=== PATIENT | female | born 1960 | race Caucasian/White ===

== ENCOUNTER 2016-06-27 11:18 | Inpatient (IN) | payer OTHER ==
[~2016-06-27] VITALS: Ht 182.9 cm; Wt 119.5 kg
[2016-06-27] VITALS (7 sets, daily range): BP systolic 128–145; BP diastolic 58–90; PULSE 85–94; RESP 16–20; TEMP 96–98.2; O2SAT 96–98
[~2016-06-27 11:18] MED LIST: CITA40 PO; ENOX150P SQ; NOVOLOGP2 SQ; OXYB5TAB PO
[2016-06-27] MEDS ORDERED: KETOROLAC TROMETHAMINE 60 MG/2 ML (IM) VIAL IM ONE (11:45)
[2016-06-27] MEDS ORDERED: OXYB5TAB10 PO (11:49)
[2016-06-27] MEDS ORDERED: ALBU6.7H INH (11:49)
[2016-06-27] MEDS ORDERED: MONT10TA2 PO (11:49)
[2016-06-27] MEDS ORDERED: POTA10TA2 PO (11:49)
[2016-06-27] MEDS ORDERED: CELE20TA PO (11:49)
[2016-06-27] MEDS ORDERED: FURO1TAB60 PO (11:49)
[2016-06-27] MEDS ORDERED: LISI2.5T3 PO (11:49)
[2016-06-27] MEDS ORDERED: IPRA17I INH (11:49)
[2016-06-27] MEDS ORDERED: SODIUM CHLOR 0.9% 1000 ML INJ 1,000 ML IV SCH ×2 (12:57→13:57)
[2016-06-27] MEDS ORDERED: SODIUM CHLORIDE 0.9% FLUSH 10 ML FLUSH IV FLUSH PRN (13:00)
--- NOTE | 2016-06-27 13:04 | PD ---
HPI Chief Complaint: Injury Time Seen by Provider: 12:00 Travel History International Travel<30 days: No Contact w/Intl Traveler<30days: No Traveled to known affect area: No History of Present Illness HPI 56-year-old female presents the emergency department status post fall while entering her workplace after tripping on a curb. She sustained injury to the right wrist. Patient was transferred here by EMS with splint applied to the right wrist and forearm and sling. Patient denies hitting her head or loss of consciousness. She denies any other injury. She patient does have a history of hypertension and chronic lower extremity edema for which she takes Lasix and lisinopril. She also has a history of asthma for which he takes Ventolin, and Flovent. Patient also takes Singulair 10 mg by mouth. Patient states allergies to hydrocodone, erythromycin, doxycycline, albuterol, and adhesives. PFSH Past Medical History Asthma: Yes Cancer: No Cardiovascular Problems: Yes Diabetes: Yes Patient Takes Glucophage: No Diminished Hearing: No Endocrine: Yes Gastrointestinal Disorders: Yes (GERD) Genitourinary: No Hepatitis: No Hiatal Hernia: No Hypertension: No Immune Disorder: No Medical other: Yes (COMA FOR 18 DAYS IN 05/2011) Musculoskeletal: Yes (DDD, BACK/ NECK PAIN) Neurologic: No Psychiatric: No Reproductive: No Respiratory: Yes Thyroid Disease: No Tetanus Vaccination: > 5 Years ?: Not Menopausal: Yes Past Surgical History AICD: No Body Medical Devices: INSULIN PUMP Cholecystectomy: Yes Insulin Pump: Yes (HUMALOG INSULIN VARYING RATE) Joint Replacement: No Pacemaker: No Other Surgery: Yes Social History Alcohol Use: No Tobacco Use: No Substance Use: No Allergies-Medications (Allergen,Severity, Reaction): Coded Allergies: Albuterol (Verified Allergy, Severe, APHASIA, SEVERE SHAKING, 06/27/16) Erythromycin (Verified Allergy, Intermediate, VOMITING, 06/27/16) Hydrocodone (Verified Allergy, Intermediate, Nausea/Vomiting, 06/27/16) Doxycycline (Verified Allergy, Mild, RASH, 06/27/16) Adhesives (Verified Adverse Reaction, Severe, ITCH, 06/27/16) Reported Meds & Prescriptions Reported Meds & Active Scripts Active Reported Proventil Hfa 6.7 GM Inh (Albuterol Sulfate) 90 Mcg/Act Aer 2 Puff INH BID PRN Atrovent HFA 12.9 GM Inh (Ipratropium [place]) 17 Mcg/Act Aer 2 Puff INH TID PRN Singulair (Montelukast Sodium) 10 Mg Tab 10 Mg PO HS Celexa (Citalopram Hydrobromide) 20 Mg Tab 20 Mg PO DAILY Ditropan (Oxybutynin Chloride) 5 Mg Tab 10 Mg PO DAILY Potassium Chloride ER (Potassium Chloride) 10 Meq Tab 10 Meq PO DAILY Lasix (Furosemide) 40 Mg Tab 40 Mg PO DAILY Lisinopril 2.5 Mg Tab 2.5 Mg PO DAILY Review of Systems Except as stated in HPI: all other systems reviewed are Neg General / Constitutional: No: Fever Eyes: No: Visual changes HENT: No: Headaches Cardiovascular: No: Chest Pain or Discomfort Respiratory: No: Shortness of Breath Gastrointestinal: No: Abdominal Pain Genitourinary: No: Dysuria Musculoskeletal: Positive: Arthralgias, Limited ROM, Pain Skin: No Rash Neurologic: No: Weakness Psychiatric: No: Depression Endocrine: No: Polydipsia Hematologic/Lymphatic: No: Easy Bruising Physical Exam Narrative GENERAL: Patient appears in mild distress. SKIN: Warm and dry. Normal color. Normal turgor. HEAD: Atraumatic. Normocephalic. EYES: Pupils equal and round. No scleral icterus. No injection or drainage. ENT: No nasal bleeding or discharge. Mucous membranes pink and moist. Pharynx is clear. Airway is patent. NECK: Trachea midline. No JVD. No bony tenderness or step-off. Range of motion is full without tenderness. CARDIOVASCULAR: Regular rate and rhythm. RESPIRATORY: No accessory muscle use. Clear to auscultation. Breath sounds equal bilaterally. GASTROINTESTINAL: Abdomen soft, non-tender, nondistended. Hepatic and splenic margins not palpable. MUSCULOSKELETAL: Extremities without clubbing, cyanosis, or edema. Patient has obvious deformities to the right wrist consistent with probable fracture. Patient has normal neurovascular exam distal to the wrist on the right. Right elbow and shoulder are normal. Patient does have ecchymosis to the right elbow which she states was from last weekend, while helping a friend move. NEUROLOGICAL: Awake and alert. No obvious cranial nerve deficits. Motor grossly within normal limits. Five out of 5 muscle strength in the arms and legs. [employer] strength is limited in the right hand secondary to pain. Normal speech. PSYCHIATRIC: Appropriate mood and affect; insight and judgment normal. Data Data Last Documented VS Vital Signs Date Time Temp Pulse Resp B/P Pulse Ox O2 Delivery O2 Flow Rate FiO2 06/27/16 13:16 16 98 Room Air 06/27/16 11:37 98.2 94 145/90 Orders Wrist, Complete ([id number]) (06/27/16 11:37) Ice/Cold Pack (06/27/16 11:37) Ketorolac Inj (Toradol Inj) (06/27/16 11:45) Diet Npo (06/27/16 Lunch) Complete Blood Count With Diff (06/27/16 12:57) Comprehensive Metabolic Panel (06/27/16 12:57) Prothrombin Time / Inr (Pt) (06/27/16 12:57) Act Partial Throm Time (Ptt) (06/27/16 12:57) Iv Access Insert/Monitor (06/27/16 12:57) Ecg Monitoring (06/27/16 12:57) Oximetry (06/27/16 12:57) Sodium Chlor 0.9% 1000 Ml Inj (Ns 1000 M (06/27/16 12:57) Sodium Chloride 0.9% Flush (Ns Flush) (06/27/16 13:00) Electrocardiogram (06/27/16 12:57) Support Splint (06/27/16 12:58) Splint Or Brace Apply/Monitor (06/27/16 12:58) Labs Laboratory Tests Test 06/27/16 13:10 White Blood Count 7.9 TH/MM3 Red Blood Count 4.56 MIL/MM3 Hemoglobin 13.4 GM/DL Hematocrit 40.1 % Mean Corpuscular Volume 88.0 FL Mean Corpuscular Hemoglobin 29.3 PG Mean Corpuscular Hemoglobin 33.3 % Concent Red Cell Distribution Width 12.9 % Platelet Count 235 TH/MM3 Mean Platelet Volume 8.3 FL Neutrophils (%) (Auto) 67.0 % Lymphocytes (%) (Auto) 22.1 % Monocytes (%) (Auto) 3.8 % Eosinophils (%) (Auto) 3.1 % Basophils (%) (Auto) 4.0 % Neutrophils # (Auto) 5.4 TH/MM3 Lymphocytes # (Auto) 1.7 TH/MM3 Monocytes # (Auto) 0.3 TH/MM3 Eosinophils # (Auto) 0.2 TH/MM3 Basophils # (Auto) 0.3 TH/MM3 CBC Comment DIFF FINAL Differential Comment MDM Medical Decision Making Medical Screen Exam Complete: Yes Emergency Medical Condition: Yes Medical Record Reviewed: Yes Differential Diagnosis Workplace injury. Fall. FOOSH injury. Wrist fracture. Narrative Course Patient is medically stable at time of exam. Patient is given 30 mg Toradol IM. X-rays of the right wrist are obtained showing comminuted fracture involving the joint line of the right distal radius. Call was placed to Dr. Vasquez and the patient was discussed. He recommends transferring the patient to the [facility], with admission with planned OR ORIF. Patient is made nothing by mouth. IV access is obtained patient has basic labs obtained including CBC, CMP, PT PTT and INR, as well as EKG and chest x-ray. The right arm and wrist is placed in a sugar tong splint and sling. She is discussed with Dr. Carrasco ankle will admit the patient. Patient is awaiting transfer to the [facility] in [facility]. Diagnosis Primary Impression: Closed right radial fracture Qualified Code: S52.531A - Closed Colles' fracture of right radius, initial encounter Admitting Information Admitting Physician Requests: Admit Condition: Stable Pee Franklin Jun 27, 2016 13:04
--- NOTE | 2016-06-27 13:16 | RADHPO ---
EXAM DATE/TIME: 06/27/2016 11:49 [facility] COMPARISON: No previous studies available for comparison. INDICATIONS : Right wrist pain MEDICAL HISTORY : None. SURGICAL HISTORY : None. ENCOUNTER: Initial ACUITY: 1 day PAIN SCORE: 9/10 LOCATION: Right chest FINDINGS: AP, lateral and oblique views of the wrist were obtained and demonstrate a mildly comminuted fracture deformity of the distal radius with multiple fracture lines. Several oblique fracture lines extend i nto the radiocarpal joint. There is mild distraction of the dorsal fragment. There is a small fractur e of the ulnar styloid. The carpus appears intact. There is overlying soft tissue swelling. CONCLUSION: 1. Fracture deformity of the distal radius. 2. Small avulsion-type fracture off of the ulnar styloid. David Redd MD on June 27, 2016 at 13:13 Board Certified Radiologist. This report was verified electronically.
[2016-06-27 13:22] LABS: AUTOMATED NEUTROPHIL # 5.4 TH/MM3 (1.8-7.7); BASOPHIL # 0.3 TH/MM3 (0-0.2); EOSINOPHIL # 0.2 TH/MM3 (0-0.4); EOSINOPHIL % 3.1 % (0.0-4.0); HEMATOCRIT 40.1 % (35.0-46.0); HEMO FLAGS DIFF FINAL; LYMPH % 22.1 % (9.0-44.0); LYMPHOCYTE # 1.7 TH/MM3 (1.0-4.8); MEAN CORPUSCULAR HEMOGLOBIN 29.3 PG (27.0-34.0); MEAN CORPUSCULAR HGB CONC 33.3 % (32.0-36.0); MONO % 3.8 % (0.0-8.0); PLATELET COUNT 235 TH/MM3 (150-450); RED BLOOD COUNT 4.56 MIL/MM3 (4.00-5.30); RED CELL DISTRIBUTION WIDTH 12.9 % (11.6-17.2); WHITE BLOOD COUNT 7.9 TH/MM3 (4.0-11.0)
[2016-06-27 13:32] LABS: CHLORIDE 103 MEQ/L (98-107); POTASSIUM 4.3 MEQ/L (3.5-5.1); SODIUM (NA) 139 MEQ/L (136-145)
[2016-06-27 13:35] LABS: ANION GAP 7 MEQ/L (5-15); BICARBONATE 28.7 MEQ/L (21.0-32.0); BLOOD UREA NITROGEN 14 MG/DL (7-18)
[2016-06-27 13:36] LABS: APTT (PATIENT) 26.1 SEC (24.3-30.1); PROTHROMBIN TIME - PATIENT 11.1 SEC (9.8-11.6)
[2016-06-27 13:38] LABS: ALT (GPT) 17 U/L (10-53); AST (GOT) 12 U/L (15-37)
[2016-06-27 13:39] LABS: GLOMERULAR FILTRATION RATE 70 ML/MIN (>89)
[2016-06-27 13:40] LABS: TOTAL BILIRUBIN ADULT 0.4 MG/DL (0.2-1.0)
[2016-06-27 13:41] LABS: ALKALINE PHOSPHATASE 84 U/L (45-117)
[2016-06-27] MEDS ORDERED: DEXTROSE 50% IN WATER 50 ML VIAL(D50) IV PUSH PRN (14:00)
[2016-06-27] MEDS ORDERED: ACETAMINOPHEN 325 MG TAB PO PRN ×2 (14:00)
[2016-06-27] MEDS ORDERED: GLUCAGON 1 MG/ML VIAL OTHER PRN (14:00)
[2016-06-27] MEDS ORDERED: MORPHINE SULFATE 4 MG/ML INJ IV PRN (14:00)
[2016-06-27] MEDS ORDERED: NALOXONE HCL 0.4 MG/ML AMP IV PRN (14:00)
[2016-06-27] MEDS ORDERED: IPRATROPIUM BROMIDE 17 MCG/ACT 12.9 GM INHALER INH PRN (14:15)
--- NOTE | 2016-06-27 14:18 | HHI.HP ---
[facility] Service [facility] Hospitalists Primary Care Physician Kevin Cartwright MD Admission Diagnosis Right wrist Fracture Diagnoses: (1) Closed right radial fracture (2) Diabetes mellitus (3) GERD (gastroesophageal reflux disease) Chief Complaint: fall, wrist pain Travel History International Travel<30 Days: No Contact w/Intl Traveler <30 Da: No Traveled to Known Affected Are: No History of Present Illness The patient is a 56-year-old female who was apparently walking into work at [employer] when she slipped on wet pavement. She fell forward, landing on her outstretched right arm. She developed pain in the right wrist immediately. No other complaints. No lightheadedness or dizziness. She did not hit her head and there was no loss of consciousness. No pain other than the right wrist. Review of Systems Constitutional: DENIES: Fever, Chills, Night Sweats Eyes: DENIES: Blurred vision, Vision loss Ears, nose, mouth, throat: DENIES: Hearing loss Respiratory: DENIES: Cough, Wheezing, Sputum production, Shortness of breath Cardiovascular: DENIES: Chest pain, Palpitations, Dyspnea on Exertion, Lower Extremity Edema Gastrointestinal: DENIES: Abdominal pain, Constipation, Diarrhea, Nausea, Vomiting Genitourinary: DENIES: Urinary frequency, Urinary incontinence, Urgency, Hematuria, Dysuria, Nocturia Musculoskeletal: COMPLAINS OF: Joint pain, DENIES: Muscle aches Integumentary: DENIES: Pruritus, Rash Hematologic/lymphatic: DENIES: Bruising Neurologic: DENIES: Headache Past Family Social History Past Medical History Insulin-dependent diabetes mellitus GERD Degenerative disc disease Chronic neck & back pain Past Surgical History Insulin pump Cholecystectomy Cervical spine surgery Reported Medications Proventil Hfa 6.7 GM Inh (Albuterol Sulfate) 90 Mcg/Act Aer 2 Puff INH BID PRN Atrovent HFA 12.9 GM Inh (Ipratropium [place]) 17 Mcg/Act Aer 2 Puff INH TID PRN Singulair (Montelukast Sodium) 10 Mg Tab 10 Mg PO HS Celexa (Citalopram Hydrobromide) 20 Mg Tab 20 Mg PO DAILY Ditropan (Oxybutynin Chloride) 5 Mg Tab 10 Mg PO DAILY Potassium Chloride ER (Potassium Chloride) 10 Meq Tab 10 Meq PO DAILY Lasix (Furosemide) 40 Mg Tab 40 Mg PO DAILY Lisinopril 2.5 Mg Tab 2.5 Mg PO DAILY Allergies: Coded Allergies: Albuterol (Verified Allergy, Severe, APHASIA, SEVERE SHAKING, 06/27/16) Erythromycin (Verified Allergy, Intermediate, VOMITING, 06/27/16) Hydrocodone (Verified Allergy, Intermediate, Nausea/Vomiting, 06/27/16) Doxycycline (Verified Allergy, Mild, RASH, 06/27/16) Adhesives (Verified Adverse Reaction, Severe, ITCH, 06/27/16) Family History Denies Social History Quit smoking many years ago. Denies alcohol or illicit drug use. Physical Exam Vital Signs Vital Signs Date Time Temp Pulse Resp B/P Pulse Ox O2 Delivery O2 Flow Rate FiO2 06/27/16 13:16 16 98 Room Air 06/27/16 11:37 98.2 94 18 145/90 96 Physical Exam GENERAL: Obese female in no acute distress. HEENT: Normocephalic, atraumatic. Pupils equal, round and reactive. Extraocular movements intact. No scleral icterus. No injection or drainage. Oropharynx is clear. Mucous membranes are moist. CARDIOVASCULAR: Regular rate and rhythm without murmurs, gallops, or rubs. RESPIRATORY: Clear to auscultation. No wheezes, rales, or rhonchi. Breathing is non-labored. GASTROINTESTINAL: Abdomen soft, non-tender, nondistended. EXTREMITIES: Trace bilateral lower extremity edema. No calf tenderness. Right arm in a splint. PSYCH: Alert and oriented x 3. Laboratory Laboratory Tests Test 06/27/16 13:10 White Blood Count 7.9 Red Blood Count 4.56 Hemoglobin 13.4 Hematocrit 40.1 Mean Corpuscular Volume 88.0 Mean Corpuscular Hemoglobin 29.3 Mean Corpuscular Hemoglobin 33.3 Concent Red Cell Distribution Width 12.9 Platelet Count 235 Mean Platelet Volume 8.3 Neutrophils (%) (Auto) 67.0 Lymphocytes (%) (Auto) 22.1 Monocytes (%) (Auto) 3.8 Eosinophils (%) (Auto) 3.1 Basophils (%) (Auto) 4.0 Neutrophils # (Auto) 5.4 Lymphocytes # (Auto) 1.7 Monocytes # (Auto) 0.3 Eosinophils # (Auto) 0.2 Basophils # (Auto) 0.3 CBC Comment DIFF FINAL Differential Comment Prothrombin Time 11.1 Prothromb Time International 1.0 Ratio Activated Partial 26.1 Thromboplast Time Sodium Level 139 Potassium Level 4.3 Chloride Level 103 Carbon Dioxide Level 28.7 Anion Gap 7 Blood Urea Nitrogen 14 Creatinine 0.84 Estimat Glomerular Filtration 70 Rate Random Glucose 250 Calcium Level 9.0 Total Bilirubin 0.4 Aspartate Amino Transf 12 (AST/SGOT) Alanine Aminotransferase 17 (ALT/SGPT) Alkaline Phosphatase 84 Total Protein 7.3 Albumin 3.7 Result Diagram: 06/27/16 1310 06/27/16 1310 Imaging Last Impressions Wrist X-Ray 06/27/16 1137 Signed Impressions: Service Date/Time: Monday, June 27, 2016 11:49 - CONCLUSION: 1. Fracture deformity of the distal radius. 2. Small avulsion-type fracture off of the ulnar styloid. David Redd MD Assessment and Plan Assessment and Plan 1. Right wrist fracture: Splint applied in ER. Orthopedic surgery planning surgical repair. Continue pain control, bowel regimen. 2. Insulin dependent diabetes mellitus: Patient has insulin pump with Novolog basal and bolus. Usually uses 35-40 units/day total. Currently NPO. Monitor Accu -Chek and cover with sliding scale insulin. 3. DVT prophylaxis: MARY Lowe. Problem Qualifiers (1) Closed right radial fracture: Qualified Code: S52.531A - Closed Colles' fracture of right radius, initial encounter Jeovanny Cruz MD Jun 27, 2016 14:18
[2016-06-27] MEDS ORDERED: NOVOLOGP2 SQ (16:06)
[2016-06-27] MEDS: INSULIN ASPART SUPPLEMENTAL SCALE SQ SCH ×2 (16:10→20:35)
[2016-06-27] MEDS ORDERED: RESP: IPRATROPIUM 0.5 MG/2.5 ML NEB NEB PRN (16:30)
[2016-06-27] MEDS: MORPHINE SULFATE 4 MG/ML INJ IV PRN (18:18)
[2016-06-27] MEDS: ONDANSETRON HCL 4 MG/2 ML VIAL IVP PRN (18:22)
[2016-06-27] MEDS ORDERED: MONTELUKAST SODIUM 10 MG TAB PO SCH (21:00)
[2016-06-27] MEDS ORDERED: DEXT 5%-NACL 0.9% 1000 ML INJ 1,000 ML IV SCH (21:30)
[2016-06-27] MEDS: DOCUSATE SODIUM 100 MG CAP PO SCH (21:32)
--- NOTE | 2016-06-27 23:26 | PD.CONS ---
cc: Jeronimo Vasquez MD HPI Service [facility]opedic Surgeons Consult Requested By ED staff Reason for Consult right distal radius fracture Primary Care Physician Kevin Cartwright MD Admission Diagnosis Right wrist Fracture Diagnoses: (1) Closed right radial fracture (2) Diabetes mellitus (3) GERD (gastroesophageal reflux disease) Chief Complaint: Right wrist pain History of Present Illness The patient is a 56-year-old female who was apparently walking into work at [employer] when she slipped on wet pavement. She fell forward, landing on her outstretched right arm. She developed pain in the right wrist immediately. No other complaints. No lightheadedness or dizziness. She did not hit her head and there was no loss of consciousness. No pain other than the right wrist. The patient initially presented to [facility]. X-rays revealed a displaced fracture of the distal radius. It was comminuted and intra- articular. It was felt to be a surgical fracture and she was transferred to the main campus for definitive care. She denies other extremity injury. Review of Systems Reviewed and well outlined in the medical record Past Family Social History Past Medical History Insulin-dependent diabetes mellitus GERD Degenerative disc disease Chronic neck & back pain Past Surgical History Insulin pump Cholecystectomy Cervical spine surgery Shoulder arthroscopy Tracheostomy Allergies: Coded Allergies: Albuterol (Verified Allergy, Severe, APHASIA, SEVERE SHAKING, 06/27/16) Erythromycin (Verified Allergy, Intermediate, VOMITING, 06/27/16) Hydrocodone (Verified Allergy, Intermediate, Nausea/Vomiting, 06/27/16) Doxycycline (Verified Allergy, Mild, RASH, 06/27/16) Adhesives (Verified Adverse Reaction, Severe, ITCH, 06/27/16) Active Ordered Medications Current Medications Medications (Trade) Dose Ordered Sig/Nilson Route Start Time Stop Time Status Last Admin (NS Flush) 2 ml UNSCH PRN IV FLUSH 06/27/16 13:00 (Tylenol) 650 mg Q4H PRN PO 06/27/16 14:00 (Zofran Inj) 4 mg Q6H PRN IVP 06/27/16 14:00 06/27/16 18:22 (Colace) 100 mg Q12H PO 06/27/16 21:00 06/27/16 21:32 (Tylenol) 650 mg Q6H PRN PO 06/27/16 14:00 (Morphine Inj) 1 mg Q3H PRN IV 06/27/16 14:00 06/27/16 18:18 (Morphine Inj) 2 mg Q3H PRN IV 06/27/16 14:00 (Narcan Inj) 0.4 mg UNSCH PRN IV 06/27/16 14:00 (D50w (Vial) Inj) 25 ml UNSCH PRN IV PUSH 06/27/16 14:00 (Glucagon Inj) 1 mg UNSCH PRN OTHER 06/27/16 14:00 (CeleXA) 20 mg DAILY PO 06/28/16 09:00 (Lasix) 40 mg DAILY PO 06/28/16 09:00 (Singulair) 10 mg HS PO 06/27/16 21:00 06/27/16 21:32 (Ditropan) 10 mg DAILY PO 06/28/16 09:00 (KCl) 10 meq DAILY PO 06/28/16 09:00 Lisinopril 2.5 mg 2.5 mg DAILY PO 06/28/16 09:00 (D5W-NS 1000 ml Inj) 1,000 ml @ 50 mls/hr Q20H IV 06/27/16 21:30 06/27/16 21:30 Reported Meds & Active Scripts Active Reported Novolog Inj (Insulin Aspart) 1,000 Unit/10 Ml Vial 0 SQ DIRECTED Sliding Scale as directed. Proventil Hfa 6.7 GM Inh (Albuterol Sulfate) 90 Mcg/Act Aer 2 Puff INH BID PRN Atrovent HFA 12.9 GM Inh (Ipratropium [place]) 17 Mcg/Act Aer 2 Puff INH TID PRN Singulair (Montelukast Sodium) 10 Mg Tab 10 Mg PO HS Celexa (Citalopram Hydrobromide) 20 Mg Tab 20 Mg PO DAILY Ditropan (Oxybutynin Chloride) 5 Mg Tab 10 Mg PO DAILY Potassium Chloride ER (Potassium Chloride) 10 Meq Tab 10 Meq PO DAILY Lasix (Furosemide) 40 Mg Tab 40 Mg PO DAILY Lisinopril 2.5 Mg Tab 2.5 Mg PO DAILY Family History Denies Social History Quit smoking many years ago. Denies alcohol or illicit drug use. Physical Exam Vital Signs Vital Signs Date Time Temp Pulse Resp B/P Pulse Ox O2 Delivery O2 Flow Rate FiO2 06/27/16 20:00 96.0 85 18 136/67 98 06/27/16 17:11 67 16 132/72 98 06/27/16 16:30 96.9 92 20 130/58 96 06/27/16 16:00 89 16 138/74 96 Room Air 06/27/16 14:17 16 06/27/16 14:00 90 16 128/66 97 Room Air 06/27/16 13:45 16 98 Room Air 06/27/16 13:16 16 98 Room Air 06/27/16 11:37 98.2 94 18 145/90 96 Physical Exam The right upper extremity is in a long arm splint. She moves her fingers freely. She has good capillary refill and sensation. There are no other localizing signs of extremity injury. Laboratory Laboratory Tests Test 06/27/16 13:10 White Blood Count 7.9 Red Blood Count 4.56 Hemoglobin 13.4 Hematocrit 40.1 Mean Corpuscular Volume 88.0 Mean Corpuscular Hemoglobin 29.3 Mean Corpuscular Hemoglobin 33.3 Concent Red Cell Distribution Width 12.9 Platelet Count 235 Mean Platelet Volume 8.3 Neutrophils (%) (Auto) 67.0 Lymphocytes (%) (Auto) 22.1 Monocytes (%) (Auto) 3.8 Eosinophils (%) (Auto) 3.1 Basophils (%) (Auto) 4.0 Neutrophils # (Auto) 5.4 Lymphocytes # (Auto) 1.7 Monocytes # (Auto) 0.3 Eosinophils # (Auto) 0.2 Basophils # (Auto) 0.3 CBC Comment DIFF FINAL Differential Comment Prothrombin Time 11.1 Prothromb Time International 1.0 Ratio Activated Partial 26.1 Thromboplast Time Sodium Level 139 Potassium Level 4.3 Chloride Level 103 Carbon Dioxide Level 28.7 Anion Gap 7 Blood Urea Nitrogen 14 Creatinine 0.84 Estimat Glomerular Filtration 70 Rate Random Glucose 250 Calcium Level 9.0 Total Bilirubin 0.4 Aspartate Amino Transf 12 (AST/SGOT) Alanine Aminotransferase 17 (ALT/SGPT) Alkaline Phosphatase 84 Total Protein 7.3 Albumin 3.7 Result Diagram: 06/27/16 1310 06/27/16 1310 Imaging Last 48 hours Impressions Wrist X-Ray 06/27/16 1137 Signed Impressions: Service Date/Time: Monday, June 27, 2016 11:49 - CONCLUSION: 1. Fracture deformity of the distal radius. 2. Small avulsion-type fracture off of the ulnar styloid. David Redd MD Assessment & Plan Problem List: (1) Colles' fracture of right radius, initial encounter for closed fracture (2) GERD (gastroesophageal reflux disease) (3) Diabetes mellitus Assessment and Plan These findings were discussed. Recommendations are given to consider surgical management. The nonoperative alternatives were discussed. The nature of the procedure, the risks, expected benefits, as well as the postoperative expectations were discussed with her in detail. In addition, the alternatives to treatment and risk of same were discussed. The possibility of one of my associates taking over care was discussed and she acknowledges full understanding and agrees to the plan. Jeronimo Vasquez MD Jun 27, 2016 23:26
[2016-06-28] VITALS: BP 134/79; PULSE 97; RESP 18; TEMP 99.4; O2SAT 96
[2016-06-28] MEDS: MORPHINE SULFATE 4 MG/ML INJ IV PRN (03:49)
[2016-06-28] MEDS: ONDANSETRON HCL 4 MG/2 ML VIAL IVP PRN (03:49)
[2016-06-28 04:00] VITALS: BP 117/67; PULSE 76; RESP 16; TEMP 97.4; O2SAT 97
[2016-06-28] MEDS: INSULIN ASPART SUPPLEMENTAL SCALE SQ SCH (06:40)
--- NOTE | 2016-06-28 07:01 | RADRPT ---
EXAM DATE/TIME: 06/28/2016 06:39 [facility] COMPARISON: WRIST RIGHT COMPLETE ([id number]), June 27, 2016, 11:49. INDICATIONS : Right wrist pain. MEDICAL HISTORY : None. SURGICAL HISTORY : None. ENCOUNTER: Subsequent ACUITY: 2 days PAIN SCORE: 6/10 LOCATION: Right wrist. FINDINGS: There is gross anatomical alignment of the distal radial fracture with slight buckling. Ulnar styloid fracture is also seen. Casting material obscures bony detail. CONCLUSION: Gross anatomical alignment post casting. Silva Guardado MD on June 28, 2016 at 6:58 Board Certified Radiologist. This report was verified electronically.
[2016-06-28] MEDS ORDERED: HYDR-3288 PO (07:10)
--- NOTE | 2016-06-28 07:14 | PD.ORT.PN ---
Subjective Subjective Remarks Jaqueline Works at [employer]. She was at work yesterday when she slipped and fell. The sidewalk was wet because of brain causing her to fall. She landed on her right wrist. Objective Vitals Vital Signs Date Time Temp Pulse Resp B/P Pulse Ox O2 Delivery O2 Flow Rate FiO2 06/28/16 04:06 14 06/28/16 04:00 97.4 76 16 117/67 97 06/28/16 00:00 99.4 97 18 134/79 96 06/27/16 20:00 96.0 85 18 136/67 98 06/27/16 17:11 67 16 132/72 98 06/27/16 16:30 96.9 92 20 130/58 96 06/27/16 16:00 89 16 138/74 96 Room Air 06/27/16 14:17 16 06/27/16 14:00 90 16 128/66 97 Room Air 06/27/16 13:45 16 98 Room Air 06/27/16 13:16 16 98 Room Air 06/27/16 11:37 98.2 94 18 145/90 96 Result Diagram: 06/27/16 1310 06/27/16 1310 Other Results Laboratory Tests Test 06/27/16 13:10 Prothrombin Time 11.1 SEC (9.8-11.6) Prothromb Time International 1.0 RATIO Ratio Imaging Last 24 hours Impressions Wrist X-Ray 06/27/16 1137 Signed Impressions: Service Date/Time: Monday, June 27, 2016 11:49 - CONCLUSION: 1. Fracture deformity of the distal radius. 2. Small avulsion-type fracture off of the ulnar styloid. David Redd MD Objective Remarks Jaqueline is awake and alert. Examination right arm reveals minimal pain with shoulder elbow motion. She is tender to palpation over distal radius. Sensation is intact in all fingers. She has mild swelling around the wrist. She is good cap refill of her fingers. Examination of left arm reveals no pain with shoulder, elbow, or wrist motion. Sensation is intact. Radial pulses palpable. Examination of bilateral lower knees reveals no pain with hip, knee, or ankle motion. Sensation is intact to both feet. Assessment & Plan Problem List: (1) Colles' fracture of right radius, initial encounter for closed fracture (2) GERD (gastroesophageal reflux disease) (3) Diabetes mellitus Assessment and Plan I ordered new x-rays of right wrist this morning. Previous x-rays were not ideal views of her wrist. X-rays today reveal that articular surface is very well aligned. There is minimal shortening or angular deformity. I discussed these x-ray findings with patient. I discussed both surgical and nonsurgical options. At this point she would prefer to proceed with nonsurgical options. I would anticipate that she have excellent long-term function of her wrists if the fracture heals in its current alignment. I will have her return to clinic in 1 week for repeat x-rays of right wrist. If the fracture remains well aligned I will plan on nonoperative treatment and place her in a cast. In fracture displaces, I will schedule her for surgery. She may be discharged home today.. Hector Hewitt MD Jun 28, 2016 07:14
[2016-06-28 08:31] VITALS: BP 125/66; PULSE 76; RESP 22; TEMP 98.2; O2SAT 96
[2016-06-28] MEDS ORDERED: FUROSEMIDE 40 MG TAB PO SCH (09:00)
[2016-06-28] MEDS ORDERED: OXYBUTYNIN CHLORIDE 5 MG TAB PO SCH (09:00)
[2016-06-28] MEDS ORDERED: CITALOPRAM HYDROBROMIDE 20 MG TAB PO SCH (09:00)
[2016-06-28] MEDS ORDERED: POTASSIUM CHLORIDE 10 MEQ CONTROLLED RELEASE TAB PO SCH (09:00)
[2016-06-28] MEDS ORDERED: LISINOPRIL 5 MG TAB PO SCH (09:00)
--- NOTE | 2016-06-28 09:10 | EKG ---
Date Performed: 06/27/2016 Time Performed: 13:16:16 PTAGE: 56 years EKG: Sinus rhythm Normal ECG PREVIOUS TRACING : 12/21/2011 16.23 No significant change from previous tracing noted. DOCTOR: Kris Zaragoza Interpretating Date/Time 06/28/2016 09:08:47
[2016-06-28] MEDS ORDERED: ULTR50TA5 PO (10:13)
--- NOTE | 2016-06-28 10:14 | HHI.DCPOC ---
Discharge Care Plan Diagnosis: (1) Closed right radial fracture (2) Diabetes mellitus Goals to Promote Your Health * To prevent worsening of your condition and complications * To maintain your health at the optimal level Directions to Meet Your Goals Take your medications as prescribed Follow your dietary instruction Follow activity as directed Keep your appointments as scheduled Take your immunizations and boosters as scheduled If your symptoms worsen call your PCP, if no PCP go to Urgent Care Center or Emergency Room Smoking is Dangerous to Your Health. Avoid second hand smoke Call the 24-hour hour crisis hotline for domestic abuse at Gabriel Antunez MD Jun 28, 2016 10:14
--- NOTE | 2016-06-28 10:15 | HHI.PR ---
Subjective Remarks Patient reports that she is feeling well. Pain on the right wrist is controlled. She has been seen and cleared by Orthopedics for discharge to follow up outpatient. Objective Vitals Vital Signs Date Time Temp Pulse Resp B/P Pulse Ox O2 Delivery O2 Flow Rate FiO2 06/28/16 08:31 98.2 76 22 125/66 96 06/28/16 04:06 14 06/28/16 04:00 97.4 76 16 117/67 97 06/28/16 00:00 99.4 97 18 134/79 96 06/27/16 20:00 96.0 85 18 136/67 98 06/27/16 17:11 67 16 132/72 98 06/27/16 16:30 96.9 92 20 130/58 96 06/27/16 16:00 89 16 138/74 96 Room Air 06/27/16 14:17 16 06/27/16 14:00 90 16 128/66 97 Room Air 06/27/16 13:45 16 98 Room Air 06/27/16 13:16 16 98 Room Air 06/27/16 11:37 98.2 94 18 145/90 96 Result Diagram: 06/27/16 1310 06/27/16 1310 Imaging Last Impressions Wrist X-Ray 06/28/16 0000 Signed Impressions: Service Date/Time: Tuesday, June 28, 2016 06:39 - CONCLUSION: Gross anatomical alignment post casting. Silva Guardado MD Objective Remarks GENERAL: This is a well-nourished, well-developed patient, in no apparent distress. CARDIOVASCULAR: Regular rate and rhythm without murmurs, gallops, or rubs. RESPIRATORY: Clear to auscultation. Breath sounds equal bilaterally. No wheezes , rales, or rhonchi. GASTROINTESTINAL: Abdomen soft, non-tender, nondistended. Normal active bowel sounds MUSCULOSKELETAL: Right upper extremity is splinted. Neurovascularly intact at the fingers. Extremities without clubbing, cyanosis, or edema. NEURO: Alert & Oriented x4 to person, place, time, situation. Moves all ext x4 A/P Problem List: (1) Closed right radial fracture ICD Code: S52.91XA Status: Acute (2) Diabetes mellitus ICD Code: E11.9 Status: Acute (3) GERD (gastroesophageal reflux disease) ICD Code: K21.9 Status: Acute Assessment and Plan 1. Right wrist fracture: Splint applied in ER. Orthopedic surgery followed the patient. DC home to follow up outpatient for repeat X-ray 2. Insulin dependent diabetes mellitus: Patient has insulin pump with Novolog basal and bolus. Usually uses 35-40 units/day total. Continue same regimen on discharge. Discharge Planning Discharge home in good condition Follow up with Orthopedics Meds per med rec activity: Regular as tolerated, per ortho instructions Diet: Diabetic Problem Qualifiers (1) Closed right radial fracture: Qualified Code: S52.531A - Closed Colles' fracture of right radius, initial encounter Gabriel Antunez MD Jun 28, 2016 10:15
[2016-06-28] MEDS: DOCUSATE SODIUM 100 MG CAP PO SCH (10:17)
== END 2016-06-28 11:37 | disposition home or self-care (01) | DRG 563 ==
LOC: PHEFT 11:18 → PHEDA 13:32 → NEPGCP 17:56
PROVIDERS: ADMIT Family Medicine; ATTEND Family Medicine
DX: S52.531A Colles' fracture of right radius, initial encounter for closed fracture (principal); E11.9 Type 2 diabetes mellitus without complications; K21.9 Gastro-esophageal reflux disease without esophagitis; M54.9 Dorsalgia, unspecified; Z79.4 Long term (current) use of insulin; W01.0XXA Fall on same level from slipping, tripping and stumbling without subsequent striking against object, initial encounter; Y93.01 Activity, walking, marching and hiking; Y92.238 Other place in hospital as the place of occurrence of the external cause
CPT/HCPCS: 73100; 73110; 80053; 82948; 85025; 85610; 85730; 93005; 96372; J1885; J2270; J2405; J7030; J7042

== ENCOUNTER → 2017-01-20 | Outpatient (CLI) | payer OTHER ==
[~2017-01-20] MED LIST changes: +ALBU6.7H INH; +CELE20TA PO; -CITA40 PO; +CYCL10TA PO; -ENOX150P SQ; +FURO1TAB60 PO; +HYDR-3288 PO; +IPRA17I INH; +LISI2.5T3 PO; +MONT10TA2 PO; -OXYB5TAB PO; +OXYB5TAB8 PO; +POTA10TA2 PO; +TRAM50 PO
--- NOTE | 2017-01-20 08:45 | RADRPT ---
EXAM DATE/TIME: 01/20/2017 08:21 [facility] COMPARISON: CHEST PA & LAT, January 13, 2014, 8:19. INDICATIONS : Evaluate for pneumonia, pneumothorax, or communicable disease. Pre op for hand/wrist surgery. MEDICAL HISTORY : Gastroesophageal reflux disease. Asthma.Peripheral vascular disease. Degenerative disk disease. SURGICAL HISTORY : Cholecystectomy. Discectomy, cervical. Shoulder. Tibia. ENCOUNTER: Initial ACUITY: 1 day PAIN SCORE: 0/10 LOCATION: chest FINDINGS: PA and lateral views of the chest demonstrate the lungs to be symmetrically aerated without evidence of mass, infiltrate or effusion. The cardiomediastinal contours are unremarkable. Osseous structure s are intact. CONCLUSION: No acute disease. Dayron Zuniga MD on January 20, 2017 at 8:43 Board Certified Radiologist. This report was verified electronically.
--- NOTE | 2017-01-20 18:40 | EKG ---
Date Performed: 01/20/2017 Time Performed: 07:51:08 PTAGE: 56 years EKG: Sinus rhythm . Septal T wave changes are nonspecific Borderline ECG Compared to PREVIOUS TRACING , T wave changes improved inferiorly, nonspecific T wave changes in V2 i s new. PREVIOUS TRACIN06/27/2016 13.16 DOCTOR: Jeronimo Valero Interpretating Date/Time 01/20/2017 18:39:16
== END ==
LOC: HCAV 07:43
PROVIDERS: ATTEND Family Medicine
DX: Z01.818 Encounter for other preprocedural examination (principal); R94.31 Abnormal electrocardiogram [ECG] [EKG]
CPT/HCPCS: 71020; 93005

== ENCOUNTER 2017-03-15 05:41 | Inpatient (IN) | payer OTHER ==
[~2017-03-15] VITALS: Ht 180.3 cm; Wt 114.6 kg
[~2017-03-15 05:41] MED LIST changes: -HYDR-3288 PO; -LISI2.5T3 PO; -OXYB5TAB8 PO; -TRAM50 PO
[2017-03-15] MEDS ORDERED: LACTATED RINGER'S 1000 ML IV PRN (06:45)
[2017-03-15] MEDS ORDERED: POVIDONE IODINE 5% (ANTISEPSIS KIT) 4 APPLICATIONS EACH NARE PRN (06:45)
[2017-03-15] MEDS ORDERED: ceFAZolin 2 GM PREMIX 50 ML IV SCH (06:45)
[2017-03-15] MEDS ORDERED: CHLORHEXIDINE GLUCONATE 2 % 1 PACK (2 CLOTHS) TOPICAL PRN (06:45)
[2017-03-15] MEDS ORDERED: METOPROLOL TARTRATE 25 MG TAB PO PRN (06:45)
[2017-03-15] MEDS ORDERED: SODIUM CHLORID 0.9% 500 ML IV PRN (06:45)
[2017-03-15 07:08] LABS: AUTOMATED NEUTROPHIL # 2.3 TH/MM3 (1.8-7.7); BASOPHIL # 0.1 TH/MM3 (0-0.2); BASOPHIL % 1.3 % (0.0-2.0); EOSINOPHIL # 0.3 TH/MM3 (0-0.4); EOSINOPHIL % 7.6 % (0.0-4.0); HEMATOCRIT 36.8 % (35.0-46.0); HEMOGLOBIN 12.6 GM/DL (11.6-15.3); LYMPHOCYTE # 1.6 TH/MM3 (1.0-4.8); MEAN CELL VOLUME 89.6 FL (80.0-100.0); MEAN CORPUSCULAR HEMOGLOBIN 30.7 PG (27.0-34.0); MEAN CORPUSCULAR HGB CONC 34.3 % (32.0-36.0); MONO % 5.5 % (0.0-8.0); MONOCYTE # 0.3 TH/MM3 (0-0.9); NEUT % 50.6 % (16.0-70.0); PLATELET COUNT 231 TH/MM3 (150-450); RED BLOOD COUNT 4.11 MIL/MM3 (4.00-5.30); RED CELL DISTRIBUTION WIDTH 12.8 % (11.6-17.2); WHITE BLOOD COUNT 4.5 TH/MM3 (4.0-11.0)
[2017-03-15] MEDS ORDERED: NEOMYCIN/POLYMYXIN 1 ML G.U. IRRIGANT ONE (07:17)
[2017-03-15] MEDS ORDERED: APREPITANT 40 MG CAP ONE (07:20)
[2017-03-15] MEDS ORDERED: BUPIVACAINE HCL PF 0.5% 30 ML VIAL ONE (07:50)
[2017-03-15] MEDS ORDERED: LIDOCAINE HCL 2% 50 ML VIAL ONE (07:50)
[2017-03-15] MEDS ORDERED: NEOMYCIN/POLYMYXIN 1 ML G.U. IRRIGANT IRRIGATION ONE (09:14)
[2017-03-15] MEDS ORDERED: LIDOCAINE 1.5%/EPINEPHrine 1:200,000 PF SOLN 30 ML AMP INFIL ONE (10:55)
[2017-03-15] MEDS ORDERED: GLYCOPYRROLATE 1 MG/5 ML SYRINGE IV PUSH ONE (12:00)
[2017-03-15] MEDS ORDERED: PROPOFOL 200 MG/20 ML AMP IV ONE (12:00)
[2017-03-15] MEDS ORDERED: LIDOCAINE HCL 1% PF 5 ML SYRINGE OTHER ONE (12:00)
[2017-03-15] MEDS ORDERED: ceFAZolin INJ 1,000 MG VIAL IV ONE (12:00)
[2017-03-15] MEDS ORDERED: PHENYLEPHRINE HCL 10 MG/ML VIAL IV ONE (12:00)
[2017-03-15] MEDS ORDERED: PHENYLEPH/NS 1000 MCG/10 ML SYR IV ONE (12:00)
[2017-03-15] MEDS ORDERED: NEOSTIGMINE 5 MG/5 ML SYRINGE IV PUSH ONE (12:00)
[2017-03-15] MEDS ORDERED: ROCURONIUM INJ 50 MG/5 ML SYRINGE IV PUSH ONE (12:00)
[2017-03-15] MEDS ORDERED: ONDANSETRON HCL 4 MG/2 ML VIAL IV PUSH ONE (12:00)
[2017-03-15] MEDS ORDERED: DO NOT ADM ANY ANTICOAGULANT DRUGS PRN (15:02)
[2017-03-15] MEDS ORDERED: OXYC30TA62 PO (15:13)
[2017-03-15] MEDS ORDERED: OXYC1TAB35 PO (15:13)
[2017-03-15] MEDS ORDERED: CEPH-460 PO (15:13)
[2017-03-15] MEDS ORDERED: MIDAZOLAM HCL 2 MG/2 ML VIAL ONE (15:16)
[2017-03-15] MEDS ORDERED: *ONDANSETRON 4 MG VIAL PERIprocedural Use ONLY ONE (15:27)
[2017-03-15] MEDS ORDERED: MEPERIDINE HCL 25 MG/ML VIAL IM PRN (15:45)
[2017-03-15] MEDS ORDERED: CYCLOBENZAPRINE HCL 10 MG TAB PO PRN (15:45)
[2017-03-15] MEDS ORDERED: ONDANSETRON ODT 4 MG TAB PO PRN (15:45)
[2017-03-15] MEDS ORDERED: ONDANSETRON HCL 4 MG/2 ML VIAL IV PUSH PRN (15:45)
[2017-03-15] MEDS ORDERED: ceFAZolin INJ 1,000 MG VIAL ONE (16:43)
[2017-03-15] MEDS ORDERED: SODIUM CHLORIDE 0.9% INJ 100 ML ONE (16:44)
[2017-03-15] MEDS: ceFAZolin 1,000 MG/NS 100 ML IV SCH ×4 (16:45→21:59)
[2017-03-15] MEDS ORDERED: IPRATROPIUM BROMIDE 17 MCG/ACT 12.9 GM INHALER INH SCH (18:00)
[2017-03-15 20:10] VITALS: O2SAT 99
[2017-03-15] MEDS ORDERED: ALBUTEROL SULFATE 90 MCG/ACT HFA 18 GM INHALER INH SCH (21:00)
[2017-03-15] MEDS ORDERED: MONTELUKAST SODIUM 10 MG TAB PO SCH (21:00)
[2017-03-15 21:05] VITALS: BP 101/48; PULSE 99; RESP 17; TEMP 97.5; O2SAT 97
[2017-03-15] MEDS: oxyCODONE HCL 10 MG CONTROLLED RELEASE TAB PO SCH (21:59)
[2017-03-16 00:15] VITALS: BP 108/48; PULSE 99; RESP 17; TEMP 98.1; O2SAT 96
[2017-03-16] MEDS: ceFAZolin 1,000 MG/NS 100 ML IV SCH ×4 (03:56→12:13)
[2017-03-16 04:35] VITALS: BP 110/49; PULSE 106; RESP 17; TEMP 99.2; O2SAT 93
[2017-03-16 08:00] VITALS: BP 133/56; PULSE 104; RESP 17; TEMP 97.6; O2SAT 93
--- NOTE | 2017-03-16 08:30 | MP ---
cc: LARRY SCHNEIDER III, M.D. DATE OF SURGERY 03/15/2017 PREOPERATIVE DIAGNOSIS 1. 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 2. Right carpal tunnel syndrome PROCEDURE 1. Right distal radius corrective osteotomy 2. Right distal radius open reduction internal fixation with iliac crest bone graft. 3. Right brachial radialis tenotomy. 4. Right open carpal tunnel release 5. Use of image intensifier SURGEON Larry Schneider III, MD PROCEDURE The patient was brought to the operating room, placed supine on the operating table. After the correct site and side of surgery were verified by members of each team in the room multiple times including the patient and myself and after adequate preoperative markings and preoperative written consent was verified by everyone and after an adequate preoperative time-out was performed to everyone's satisfaction and after adequate general anesthesia had been achieved, the right upper extremity and the right flank and hip were prepped and draped in the traditional sterile surgical fashion. Using the mini C-arm, the site of the intended procedure was verified. A 50/50 mixture of 2% plain lidocaine, 0.5% plain Marcaine was infiltrated in the skin and subcutaneous tissue in the area of the anterior superior iliac spine in this case with epinephrine and a plain mixture into the right forearm and carpal tunnel. The limb was exsanguinated with an Jemal wrap. A highly placed well-padded axillary tourniquet was inflated to 200 mmHg for a total of 120 minutes. A longitudinally oriented incision at the base of palm within the skin crease was made and carried down through skin and subcutaneous tissue. Blunt dissection was performed. The palmar fascia was retracted in opposite directions. The transverse carpal ligament was identified and divided in its midline in its entirety from its proximal most to its distal-most extent freeing the carpal tunnel contents completely. They appeared to be intact and there was no obvious mass effect other than the deformity from the wrist. A thorough irrigation with saline was performed. The skin edges were reapproximated using running and interrupted 4-0 nylon suture. Attention was then paid to the wrist. A longitudinal incision made on the radial side of the wrist and forearm, carried down through skin and subcutaneous tissue. Blunt dissection was performed. Bipolar electrocautery was used as needed. A type 2 pattern of the dorsal sensory branch of the radial nerve was identified and internal neurolysis was performed easily. These were two very large branches and were retracted away from the midline. The first dorsal compartment was released dorsally and then itself off the of the distal radius and retracted dorsally. The brachial radialis was then released sharply and reattached proximally at the end of case. The distal radius was identified and brittle callous bone formation was then gently debrided in a very limited fashion. The radial styloid was identified. The K-wire was placed in it to identify the radius malunion plate from the Hopelaed system was used and selected. These three screws distally were placed, but were found to be to short given the poor bone quality that we encountered throughout the case. We had to get a Synthes small fragment set out to get longer screws which we used, but as a result had a more prominent head radially. The heads were very smooth thought. The proximal two screws were removed and a 90 degrees osteotomy with an oscillating saw using irrigation the entire time was made in the distal aspect of the radius. The three screws were replaced. The proximal stem of the plate was reduced to the radial shaft and the bone was found to be very friable distally and the screws were not able to hold. This was the time when we fetched longer screws from a different set to place. Also, Norian hardening bone graft was then injected into the entire distal metaphysis which solidified it and made it much easier to work with. A laminar pediatric dental hygienist was used to reestablished the length on the distal radius. A 10 mm incision over the anterior superior iliac spine was made and carried down through skin and subcutaneous tissue. Ioban had been placed on the skin. Electrocautery was used to assist with the dissection to the aponeurotic layer, however the anterior superior iliac spine was incised and the periosteal elevator was used to expose the bone. A 1-1/2 cm tricortical graft was then harvested. Bone wax was then used to fill the exposed cancellous bone surfaces which stopped the bleeding easily. A saline soaked lap pad was then inserted. Attention was then paid back to the forearm. The axillary tourniquet released after 120 minutes and the hand and arm became immediately soft, pink, warm and had brisk capillary refill of less than two seconds. Shaping of the bone graft was performed. There was no active bleeding at all. The shaping of the iliac crest bone graft was performed. It was then secured in place with a small paper clip from the [employer] distal radius set and then volarly by an additional Norian bone cement that was molded to the volar aspect of the distal radius. The end result was restored radial inclination and a neutral volar tilt which was improved significantly from the preoperative start of the negative 60 degrees. Passively, I was able to flex the patient's wrist completely down 80 degrees. The wrist was held in flexion manually for 45 minutes while the bone graft distally hardened. Tissue was repaired underneath the tendons of the first dorsal compartment covering over the screw heads that were prominent distally and this was very thick tissue that was covered this. This was done with 2-0 Vicryl sutures. Proximally, the pronator quadratus was used to cover over the proximal aspect of the plate. A thorough irrigation with saline was performed again. The two limbs of the dorsal sensory branch of the radial nerve were identified and found be intact. They were then infiltrated with 0.5 cc of the anesthetic mixture for postoperative pain relief. Additional anesthetic was injected dorsally and radially for the same reason. Structurally, the repair was very sounds at this point. Passive range of motion was definitely better than it was preoperatively. The patient was already stiff preoperatively. There was no crepitance or any evidence of instability. Using the mini C-arm, the three screw heads were verified not to be within the radiocarpal joint or through the sigmoid notch into the distal radioulnar joint and on full palpation there was no evidence of any crepitance at all. The deep subcutaneous tissues were reapproximated using 3-0 Vicryl sutures. The first dorsal compartment contents showed no sign of subluxation as they were held still by their investment distally in the hand and the wrist. Thorough irrigation was performed again. The skin edges were reapproximated using interrupted 4-0 nylon sutures. The radial crest donor site was then closed using 0 Vicryl suture in interrupted fashion in the deep first layer. A small Chris-Owens 4 mm drain was brought out from the skin proximally and attached to self-contained bulb suction. A three layer closure beneath the skin was then performed for the right hip donor site using Vicryl sutures and the skin edges reapproximated using interrupted and running 3-0 nylon sutures. All operative sites were thoroughly cleansed and dried. Betadine Adaptic dressings applied atop of all wounds. A bulky fluff dressing was applied over the incisions in the right hand and wrist with the wrist flexed 45-60 degrees, a well-padded, well molded long-arm sugar-tong splint was made in the usual fashion. The capillary refills was still less than two seconds in all fingertips. There was no edema or tension within the arm, forearm, wrist or hand. There was no evidence of any compartment syndrome and capillary refill was less than two seconds throughout. A bulky soft sterile dressing was applied over the right hip wound and secured. A drain suture using 3-0 nylon was placed around the drain. It still remained pinned, but secured. A drain sponge was then also used to protect the drain site. The patient was awakened from anesthesia and transported to the Post Anesthesia Care Unit awake and in stable condition at the end of the case. Sponge, needle and instrument counts were correct at the end of the case as reported by nurses in the room. MD MIGUEL Prajapati III/MARGOTH /3:26 PM /7:36 AM
[2017-03-16] MEDS ORDERED: POTASSIUM CHLORIDE 10 MEQ CAP PO SCH (09:00)
[2017-03-16] MEDS ORDERED: FUROSEMIDE 40 MG TAB PO PRN (09:00)
[2017-03-16] MEDS ORDERED: POTASSIUM CHLORIDE 10 MEQ CAP PO PRN (09:00)
[2017-03-16] MEDS ORDERED: TIOTROPIUM BROMIDE 18 MCG INH INH SCH (09:00)
[2017-03-16] MEDS ORDERED: FUROSEMIDE 40 MG TAB PO SCH (09:00)
[2017-03-16] MEDS ORDERED: ALBUTEROL SULFATE 90 MCG/ACT HFA 8 GM INHALER INH SCH (09:00)
[2017-03-16] MEDS ORDERED: CITALOPRAM HYDROBROMIDE 20 MG TAB PO SCH (09:00)
[2017-03-16] MEDS: oxyCODONE HCL 10 MG CONTROLLED RELEASE TAB PO SCH (09:00)
[2017-03-16 10:16] VITALS: O2SAT 93
[2017-03-16 12:00] VITALS: BP 125/80; PULSE 84; RESP 17; TEMP 97.9; O2SAT 94
== END 2017-03-16 13:56 | disposition home or self-care (01) | DRG 512 ==
LOC: HSDI 05:41 → N06A 17:23
PROVIDERS: ADMIT Orthopaedic Surgery Hand Surgery; ATTEND Orthopaedic Surgery Hand Surgery
PROC: 01N50ZZ Release Median Nerve, Open Approach (ICD-10-PCS; 2017-03-15)
PROC: 0PSH04Z Reposition Right Radius with Internal Fixation Device, Open Approach (ICD-10-PCS; 2017-03-15)
PROC: 0PR Upper Bones, Replacement (ICD-10-PCS; principal; 2017-03-15 08:22)
PROC: 0QB20ZZ Excision of Right Pelvic Bone, Open Approach (ICD-10-PCS; 2017-03-15 08:22)
DX: S52.501P Unspecified fracture of the lower end of right radius, subsequent encounter for closed fracture with malunion (principal); F32.9 Major depressive disorder, single episode, unspecified; E10.9 Type 1 diabetes mellitus without complications; G56.01 Carpal tunnel syndrome, right upper limb; J45.909 Unspecified asthma, uncomplicated; K21.9 Gastro-esophageal reflux disease without esophagitis
CPT/HCPCS: 76000; 82948; 85025; C1713; J0690; J2250; J2370; J2405; J2710; J3010; J7120; J8501